=== PATIENT | female | born 1995 | race Caucasian/White ===

== ENCOUNTER 2024-12-12 23:13 | Emergency (ER) | payer SELFPAY ==
[~2024-12-12] VITALS: Ht 160 cm; Wt 170.0 kg
[2024-12-12 23:51] VITALS: O2SAT 100
[2024-12-13] MEDS ORDERED: IBUP-2029 MT (03:42)
[2024-12-13] MEDS ORDERED: AMOX1TAB16 MT (03:42)
[2024-12-13] MEDS: IBUPROFEN 600MG TABLET PO ONE (03:55)
[2024-12-13] MEDS: AMOXICILLIN/POTASSIUM CLAVULANATE 875/125MG TAB PO ONE (03:56)
[2024-12-13 03:59] VITALS: BP 115/88; PULSE 87; RESP 16; TEMP 37.1; O2SAT 100
== END 2024-12-13 04:00 | disposition home or self-care (01) ==
LOC: ER 23:13
DX: K02.9 Dental caries, unspecified (principal); I95.9 Hypotension, unspecified; Z90.49 Acquired absence of other specified parts of digestive tract; Z79.899 Other long term (current) drug therapy
CPT/HCPCS: 81025; 99283